=== PATIENT | female | born 1940 | race Caucasian/White ===

== ENCOUNTER → 2023-06-14 10:48 | Outpatient (REF) | payer MEDICARE, OTHER, SELFPAY ==
[2023-06-14 12:44] LABS: ALT (SGPT) 33 U/L (0-35); AST (SGOT) 35 U/L (14-36); Albumin 4.7 g/dl (3.5-5.0); Alkaline Phosphatase 84 U/L (38-126); Blood Urea Nitrogen 23 mg/dl (7-17); Calcium 10.3 mg/dl (8.4-10.2); Carbon Dioxide 28 mmol/L (22-30); Chloride 101 mmol/L (98-107); Glucose 116 mg/dl (70-99); HDL Cholesterol 54 mg/dl; LDL Cholesterol, Calculated 62 mg/dl; Potassium 4.5 mmol/L (3.5-5.1); Sodium 140 mmol/L (135-145); Total Bilirubin 0.7 mg/dl (0.2-1.3); Total Cholesterol 163 mg/dl (50-199); Total Protein 7.4 g/dl (6.3-8.2); Triglyceride 238 mg/dl (10-149); Very Low Density Lipoprotein 47 mg/dl (0-30); eGFR > 60.00
[2023-06-14 12:59] LABS: Free T4 1.03 ng/dl (0.78-2.19)
[2023-06-14 13:13] LABS: TSH 1.18 uIU/ml (0.47-4.68)
[2023-06-14 19:28] LABS: Hepatitis B Surface Antibody Negative; Hepatitis C Antibody Negative (Negative)
== END ==
LOC: WDC 10:48
PROVIDERS: ATTENDING PHYSICIAN Family Medicine
DX: E78.2 Mixed hyperlipidemia (principal); R73.01 Impaired fasting glucose; E03.9 Hypothyroidism, unspecified; R74.8 Abnormal levels of other serum enzymes; Z12.31 Encounter for screening mammogram for malignant neoplasm of breast
CPT/HCPCS: 36415; 77063; 77067; 80053; 80061; 83036; 84439; 84443; 86706; 86803

== ENCOUNTER → 2023-10-29 10:07 | Outpatient (REF) | payer MEDICARE, OTHER, SELFPAY | LOC: RCS 10:07 | PROVIDERS: ATTENDING PHYSICIAN Internal Medicine Cardiovascular Disease; FAMILY PHYSICIAN Family Medicine | DX: I44.2 Atrioventricular block, complete (principal); I48.0 Paroxysmal atrial fibrillation; Z95.0 Presence of cardiac pacemaker | CPT/HCPCS: 93306 ==

== ENCOUNTER → 2024-01-28 10:21 | Outpatient (REF) | payer MEDICARE, OTHER, SELFPAY ==
[2024-01-28 11:44] LABS: ALT (SGPT) 36 U/L (0-35); AST (SGOT) 40 U/L (14-36); Albumin 4.8 g/dl (3.5-5.0); Alkaline Phosphatase 76 U/L (38-126); Blood Urea Nitrogen 17 mg/dl (7-17); Calcium 10.3 mg/dl (8.4-10.2); Carbon Dioxide 28 mmol/L (22-30); Chloride 101 mmol/L (98-107); Glucose 109 mg/dl (70-99); HDL Cholesterol 63 mg/dl; LDL Cholesterol, Calculated 71 mg/dl; Potassium 4.4 mmol/L (3.5-5.1); Sodium 144 mmol/L (135-145); Total Bilirubin 0.8 mg/dl (0.2-1.3); Total Cholesterol 174 mg/dl (50-199); Total Protein 7.4 g/dl (6.3-8.2); Triglyceride 201 mg/dl (10-149); Very Low Density Lipoprotein 40 mg/dl (0-30); eGFR > 60.00
[2024-01-28 11:57] LABS: Free T4 0.83 ng/dl (0.78-2.19)
[2024-01-28 12:10] LABS: TSH 1.79 uIU/ml (0.47-4.68)
== END ==
LOC: REG 10:21
PROVIDERS: ATTENDING PHYSICIAN Family Medicine
DX: E78.2 Mixed hyperlipidemia (principal); R73.01 Impaired fasting glucose; E03.9 Hypothyroidism, unspecified
CPT/HCPCS: 36415; 80053; 80061; 84439; 84443

== ENCOUNTER → 2024-06-23 16:51 | Outpatient (REF) | payer MEDICARE, OTHER, SELFPAY | LOC: WDC 16:51 | PROVIDERS: ATTENDING PHYSICIAN Family Medicine | DX: Z12.31 Encounter for screening mammogram for malignant neoplasm of breast (principal); Z12.39 Encounter for other screening for malignant neoplasm of breast | CPT/HCPCS: 77063; 77067 ==

== ENCOUNTER → 2024-08-06 09:59 | Outpatient (REF) | payer MEDICARE, OTHER, SELFPAY ==
[2024-08-06 11:44] LABS: ALT (SGPT) 40 U/L (0-35); AST (SGOT) 38 U/L (14-36); Albumin 4.8 g/dl (3.5-5.0); Alkaline Phosphatase 74 U/L (38-126); Blood Urea Nitrogen 16 mg/dl (7-17); Carbon Dioxide 27 mmol/L (22-30); Chloride 106 mmol/L (98-107); Free T4 1.11 ng/dl (0.78-2.19); Glucose 124 mg/dl (70-99); HDL Cholesterol 54 mg/dl; LDL Cholesterol, Calculated 62 mg/dl; Potassium 4.6 mmol/L (3.5-5.1); Sodium 143 mmol/L (135-145); Total Bilirubin 0.8 mg/dl (0.2-1.3); Total Cholesterol 172 mg/dl (50-199); Total Protein 7.2 g/dl (6.3-8.2); Triglyceride 280 mg/dl (10-149); Very Low Density Lipoprotein 56 mg/dl (0-30); eGFR > 60.00
[2024-08-06 11:58] LABS: TSH 1.38 uIU/ml (0.47-4.68)
== END ==
LOC: REG 09:59
PROVIDERS: ATTENDING PHYSICIAN Family Medicine
DX: E78.2 Mixed hyperlipidemia (principal); R73.01 Impaired fasting glucose; E03.9 Hypothyroidism, unspecified
CPT/HCPCS: 36415; 80053; 80061; 84439; 84443

== ENCOUNTER → 2025-01-24 09:33 | Outpatient (REF) | payer MEDICARE, OTHER, SELFPAY ==
[2025-01-24 10:31] LABS: ALT (SGPT) 39 U/L (0-35); AST (SGOT) 39 U/L (14-36); Albumin 4.9 g/dl (3.5-5.0); Alkaline Phosphatase 72 U/L (38-126); Blood Urea Nitrogen 19 mg/dl (7-17); Calcium 10.3 mg/dl (8.4-10.2); Carbon Dioxide 29 mmol/L (22-30); Chloride 100 mmol/L (98-107); Glucose 124 mg/dl (70-99); HDL Cholesterol 61 mg/dl; LDL Cholesterol, Calculated 61 mg/dl; Potassium 4.5 mmol/L (3.5-5.1); Sodium 136 mmol/L (135-145); Total Protein 7.6 g/dl (6.3-8.2); Very Low Density Lipoprotein 41 mg/dl (0-30); eGFR > 60.00
[2025-01-24 11:08] LABS: TSH 2.39 uIU/ml (0.47-4.68)
== END ==
LOC: REG 09:33
PROVIDERS: ATTENDING PHYSICIAN Family Medicine
DX: E78.2 Mixed hyperlipidemia (principal); E03.9 Hypothyroidism, unspecified
CPT/HCPCS: 36415; 80053; 80061; 84439; 84443